=== PATIENT | female | born 1995 | race Caucasian/White ===

== ENCOUNTER 2024-02-18 06:00 | Emergency (ER) | payer MEDICARE, MEDICAID, SELFPAY ==
[2024-02-18] VITALS (32 sets, daily range): BP systolic 95–118; BP diastolic 45–71; PULSE 90–147; RESP 14–38; TEMP 36.6–38.1; O2SAT 90–100
--- NOTE | 2024-02-18 05:45 | DI.RAD_ITS ---
Exam(s) XR PORTABLE CHEST AP EXAM: XR PORTABLE CHEST AP CLINICAL HISTORY: trache/vent, resp distress green sputum. TECHNIQUE: 2D digital imaging was performed. COMPARISON: No exams were available for comparison FINDINGS: Single AP portable view. No previous for comparison Distal tip of the tracheotomy tube is 3 cm above the jorge. The danced scoliosis convex right in the thoracic spine is noted. There is cardiomegaly. Mediastinum is not widened. Left lung is clear. Somewhat decreased right hemithoracic volume because of the scoliosis. Mild inc reased markings in the right lung base. No pleural effusions. No pulmonary edema. There is no pneu mothorax. There are no fractures. IMPRESSION: Possible mild infiltrate in the right lower lobe/right lung base. No pleural effusions evident on th is single view. Cardiomegaly. No pulmonary edema. DATA REPOSITORY: RADIATION DOSE DELIVERED:
--- NOTE | 2024-02-18 06:00 | RT.EKG_ITS ---
APPROVED REPORT Exam: Resting ECG Reason for Exam: shortnesss of breath Patient Location: E HR:134 bpm ECG Measurements Heart Rate 134 AXIS MN 107 P 45 QRSd 82 QRS 92 QT 296 T 70 QTc 442 Conclusion Sinus tachycardia...rate> 99 Atrial premature complex...SV complex w/ short R-R interval
--- NOTE | 2024-02-18 06:25 | ED.GENADUL_ITS ---
Discharge Plan Discharge Details Chief Complaint: SOB ED Provider: Nubia Brown General Mode of arrival: ambulatory . Date/Time Provider Initiated Documentation: 02/18/24 06:05 . Limitations to Documentation: no limitations . Information obtained by: patient, family and EMS . 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 Yesterday evening patient developed a sore throat, increasing greenish secretions. Mom gave her a dose of levaquin last night (has on hand for this situation); this morning had increasing respiratory distress, shortness of breath, and O2 requirement increased to 4L from baseline 0.5L. Tmax 101.1F at home, HR in 130's for EMS (typically in 90's per mom). Hx of both MRSA and pseudomonas pneumonia in the past. Otherwise in her usual state of health with no nasuea, vomiting, chest pain, abdominal pain, or other concerns. General Stated Complaint: SOB ELAINE: 3 Review of Systems Narrative: see HPI Exam Narrative Exam Narrative: General: Alert Head: Atraumatic Neck: Trachea midline, ?Neck supple. Trache present, scant mucousy secretions ENT: ?MMM.? Cardiac: ?Tacjhycardiac, regular, no murmurs appreciated Resp: Diminished breath sounds on right. Slight rhonchi. No retractions. Abd: ?Soft, non-distended, nontender : ?No suprapubic tenderness. Extremities: ?Contractures. No peripheral edema. Neurologic: GCS 15. ? Course Vital Signs Vital signs: Vital Signs Temperature 38.1 C H 02/18/24 05:58 Pulse 138 H 02/18/24 05:58 Respiratory Rate 28 H 02/18/24 05:58 Blood Pressure 110/71 02/18/24 05:58 Pulse Oximetry 90 L 02/18/24 05:58 Temperature 38.1 C H 02/18/24 06:10 Temperature Source Temporal Artery Scan 02/18/24 06:10 Pulse 134 H 02/18/24 06:10 Respiratory Rate 28 H 02/18/24 06:10 Respiratory Effort Short of Breath, Incrsd Work of Breathing 02/18/24 06:10 Respiratory Depth Shallow 02/18/24 06:10 Respiratory Pattern Tachypnea 02/18/24 06:10 Blood Pressure 110/71 02/18/24 05:58 Pulse Oximetry 97 02/18/24 06:10 Oxygen Delivery Method Trach Collar 02/18/24 06:10 Oxygen Flow Rate 6 02/18/24 06:10 Lab/Test Results Lab/Test Results: 02/18/24 05:56 Blood Blood Culture - Pending 02/18/24 05:56 Blood Blood Culture - Pending Medical Decision Making 28yo F with muscular dystrophy, 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 Yesterday evening patient developed a sore throat, increasing greenish secretions; this morning had increasing respiratory distress, shortness of breath, and O2 requirement increased to 4L from baseline 0.5L. Tmax 101.1F at home, HR in 130's for EMS (typically in 90's per mom). Hx of both MRSA and pseudomonas pneumonia in the past. Normotensive on arrival, HR 130's RR 20's, febrile. Diminished breath sounds on the right, some rhonchi. Likely sepsis/pneuomnia. Will treat wtih 2L IVFB, broad spectrum abx (zosyn/zyvox) pending results. Midline placed by anesthesia. No ICU beds at [facility] at this time (possible moves this morning) and pt states she requires humidified oxygen. Pt and mother prefer [facility] if transfer is necessary. Will be signed out to oncoming physician, plan to followup results; admission vs transfer pending bed availability. Quality:SDOH Health Related Social Needs: No Data to Display [facility] Social History Smoking/Tobacco Use Status: Never Smoking risk assessment performed?: Yes Alcohol Intake: never Drug use: Never Substance use type: does not use
--- NOTE | 2024-02-18 06:38 | W.ANESVAS ---
Midline Placement Date Performed: 02/18/24 Procedure Time: 06:30 Requesting Provider: Nubia Brown Procedure Location: Emergency Department Sedation Given (Indicate Dose Given): No Sedation given Patient Mental Status: Awake Sterility: Hand Hygiene, Surgical Cap, Surgical Mask, Sterile Gloves, Sterile Drape/Sheet and Chlorhexidine Laterality: Right Insertion Site: Brachial Midline Device: PowerGlide Pro 20G Catheter Length: 10 cm Midline Procedure Procedure: 1% Lidocaine to skin and subcutaneous tissue with 25g needle Dressing: Tegaderm Applied and Statlock Applied Blood Return: Present Flushes: Easily Ultrasound: Sterile probe cover and gel used Ultrasound Image Saved?: Yes Number of Attempts (See previous attempts in note section): 1 Procedure Tolerated: No Complications Procedure Outcome: Successful Performed By: Baron Gonzales
[2024-02-18 06:52] LABS: Influenza A PCR Negative (Negative); Influenza B PCR Negative (Negative); RSV PCR Negative (Negative)
[2024-02-18] MEDS: MORPHine 4 MG/ML SYR 5 MG IVP (06:52)
[2024-02-18 06:53] LABS: Abs Immature Grans 0.06 10^3/uL (0.0-0.06); Absolute Basophil Count 0.01 10^3/uL (0.0-0.2); Absolute Lymphocyte Count 0.67 10^3/uL (1.2-3.4); Absolute Monocyte Count 1.76 10^3/uL (0.1-0.8); BE (Venous) 8 mmol/L (-2-3); Basophils % 0.1 %; HCO3 (Venous) 33 mmol/L (23-28); HGB 10.5 g/dL (11.2-15.7); Immature Grans % 0.5 %; Lymphocytes % 5.9 %; MCH 25.4 pg (27.0-33.0); MCHC 29.2 % (32.0-36.0); MCV 87 fL (80-95); MPV 11.5 fL (8.0-11.0); Monocytes % 15.5 %; O2 Sat (Venous) 91 %; Platelet Count 187 10^3/uL (130-400); RBC 4.13 10^6/uL (3.93-5.22); RDW 15.3 % (11.7-14.6); RDW-SD 48.4 fL; TCO2 (Venous) 31 mmol/L (24-29); WBC 11.34 10^3/uL (4.4-10.8); pCO2 (Venous) 58 mmHg (41-51); pH (Venous) 7.37 (7.31-7.41); pO2 (Venous) 60 mmHg
[2024-02-18 06:55] LABS: Absolute Neutrophil Count 8.85 10^3/uL (1.2-6.7)
[2024-02-18] MEDS: MORPHine 10 MG/ML VIAL IVP ×3 (06:55→09:54)
[2024-02-18] MEDS: Albuterol/Ipratropium 3 ML UPD VIAL UPD (06:56)
[2024-02-18 06:58] LABS: COVID-19 PCR Positive (Negative); Source Nasopharynx
[2024-02-18] MEDS: PIPERACILLIN/TAZO 4.5 GM in Normal Saline 100 ML IVPB (07:00)
[2024-02-18] MEDS: Normal Saline 1,000 ML 1000 ML IV ×2 (07:00→09:02)
[2024-02-18 07:16] LABS: ALT 11 U/L (14-59); AST 15 U/L (15-37); Albumin 3.6 g/dL (3.4-5.0); Alkaline Phosphatase 71 U/L (46-116); Anion Gap 5.5 mmol/L (3-11); BUN 15 mg/dL (7-18); Bilirubin, Total 0.53 mg/dL (0.2-1.0); CO2 34.5 mmol/L (21.0-32.0); CREATININE 0.2 mg/dL (0.55-1.02); Chloride 98 mmol/L (98-107); Estimated GFR 165.33 (mL/min/1.73m2); Glucose 108 mg/dL (74-106); Magnesium 1.6 mg/dL (1.8-2.4); Potassium 3.3 mmol/L (3.5-5.1); Sodium 138 mmol/L (136-145); Total Protein 7.8 g/dL (6.4-8.2)
[2024-02-18 07:21] LABS: Diff Comment Agrees w/ Instrument; RBC Morphology Normal
[2024-02-18] MEDS: Lidocaine 1% Multi-Dose 10 ML VIAL (07:23)
--- NOTE | 2024-02-18 07:40 | ED.PROG_ITS ---
Date of service: 02/18/24 Time of Service: 07:41 Medical Decision Making Patient signed out to me pending lab work and x-ray, x-ray still pending read by radiology. On my read is hard to interpret given her underlying anatomic abnormalities from her muscular dystrophy. She is positive for COVID, has been ordered for Zosyn and linezolid as well as she has not had red man syndrome from vancomycin in the past. I ordered remdesivir as her oxygen requirements have increased and will give a dose of dexamethasone. Currently no ICU beds here and apparently we do not have heated humidified ventilation to help with her secretions so we will reach out to department to see if they can accept her for transfer for continued management. Patient hemodynamically stable, [facility] capacity as is [facility]. [facility] transfer center did check with [facility] and they do have capacity and accept the patient. Dr. Erik Jackson is the accepting provider. Differential Diagnosis Differential Diagnosis: covid, pneumonia, sepsis Imaging Data Radiologic Study: Attestation: I personally reviewed and interpreted this imaging study as follows: Imaging: X-Ray Radiologist's impression: IMPRESSION: Possible mild infiltrate in the right lower lobe/right lung base. No pleural effusions evident on this single view. Lab Data Lab results reviewed: Yes I reviewed the patient's lab results. ECG Data Attestation: I personally reviewed and interpreted this ECG (s) as follows: Prior ECG tracings: not available for review Interpretation: sinus tachycardia, rate of 134 pr 107 no stemi Quality:SDOH Health Related Social Needs: No Data to Display Sign Out Sign Out Data: Sign Out Comment: 28yo F muscular dystrophy trache/vent dependent baseline 0.5L O2 presents with respiratory distress, increased secretions. Tachycardiac and febrile. Pending labs. Treating with IVFB, zosyn/zyvox. COVID + Last updated by Nubia Brown MD at 02/18/24 07:12 Discharge Plan Disposition Specific Acute Inpt Facility: [facility] Condition: Poor Discharge Details Chief Complaint: SOB Clinical Impression: COVID, Pneumonia, Acute hypoxic respiratory failure Primary Care Provider: Unknown,Unknown ED Provider: [place] Bobby Home Meds and New Rx's Prescriptions: No Action morphine 15 mg tablet 15 mg PO BID diphenhydramine HCl [Benadryl] 25 mg capsule 25 mg PO PRN PRN furosemide 20 mg tablet 20 mg PO PRN potassium bicarbonate 6.5 mEq tablet, effervescent 20 meq PO PRN Rx Instructions: PRN w/ Lasix prednisone 10 mg tablet 10 mg PO DIRECTED Rx Instructions: see taper instructions guaifenesin 400 mg tablet 400 mg PO BID PRN Rx Instructions: Up to four times daily PRN for copious secretions docusate sodium 50 mg capsule 50 mg PO DAILY ondansetron HCl 4 mg tablet 4 mg PO PRN PRN azithromycin 250 mg tablet 250 mg PO Q OTHER DAY Rx Instructions: start on day 2 of therapy
[2024-02-18] MEDS: REMDESIVIR 200 MG in Normal Saline 250 ML 250 MG IVPB (07:52)
[2024-02-18] MEDS: Dexamethasone 10 MG/ML VIAL 6 MG IVP (07:55)
--- NOTE | 2024-02-18 08:21 | DI.VRAD_ITS ---
PROCEDURE INFORMATION: Exam: XR Chest Exam date and time: 02/18/2024 6:14 AM Age: 28 years old Clinical indication: Other: Trache/vent, resp distress green sputum TECHNIQUE: Imaging protocol: Radiologic exam of the chest. Views: 1 view. COMPARISON: No relevant prior studies available. FINDINGS: Limitations: Hardware overlies the patient. Atypical patient positioning. Marked spinal curvature with anatomic distortion. Tubes, catheters and devices: Tracheostomy tube. Lungs: Right basilar opacity. Pleural spaces: No large pleural effusion seen. Heart/Mediastinum: No cardiomegaly. Bones/joints: Grossly unremarkable. Gastrointestinal tract: Gas-filled bowel in the visualized abdomen. IMPRESSION: 1. Study limitations as above.. 2. Opacity at the right lung base suspicious for pneumonia. Follow-up as clinically warranted. Dictated and Authenticated by: Berenice Heart MD. Ordering:SARA Delacruz MD
[2024-02-18 08:27] LABS: Procalcitonin < 0.1 ng/mL
[2024-02-18] MEDS: LINEZOLID 600 MG/300 ML BAG 300 MG IVPB (09:06)
== END 2024-02-18 10:39 | disposition short-term general hospital (02) ==
LOC: ER 10:29
PROVIDERS: Student in an Organized Health Care Education/Training Program; Emergency Provider Emergency Medicine
DX: U07.1 COVID-19 (principal); G71.00 Muscular dystrophy, unspecified; Z93.0 Tracheostomy status; Z99.11 Dependence on respirator [ventilator] status; Z86.14 Personal history of Methicillin resistant Staphylococcus aureus infection
CPT/HCPCS: 00123; 36415; 76942; 80053; 82805; 84145; 87040; 87637; 93005; 94640; 96365; 96366; 96367; 96368; 96375; 96376; 99285; 71045; 81003; 83735; 85025; 87070; 87086; 87205; 93010; J0131; J0248; J1100; J2003; J2020; J2270; J2543; J7620